=== PATIENT | male | born 1955 | race Caucasian/White ===

== ENCOUNTER → 2017-08-20 | Outpatient (CLI) | payer BC ==
--- NOTE | 2017-08-21 09:21 | MRI ---
EXAM DESCRIPTION: Knee,Right: MRI. CLINICAL HISTORY: KNEE PAIN COMPARISON: None. TECHNIQUE: Multiplanar, high-field MRI, multiple sequences, without contrast: Right knee. FINDINGS: Increased signal in the posterior horn more than the anterior horn of the medial meniscus. No fluid signal no definite extension to the articular surface. However, on the coronal sequence there appears to be a full-thickness tear between the posterior horn in the central root attachment. Any collateral ligament and elements of the lateral collateral ligament complex are unremarkable. A soft tissue mass or fluid collection. Mild to moderate chondromalacia in the medial compartment with effusion. Marginal spurs. Subchondral edema anterior outer medial plateau. Minimal outward subluxation of the anterior horn of the medial meniscus. Intermediate degenerative signal in the lateral meniscus. No definite tear. Minimal lateral chondromalacia and marginal spurs. Minimal chondromalacia lateral condyle and moderate chondromalacia lateral plateau with 1 focal ulcer extending to the subchondral bone. No subchondral edema. Anterior cruciate and posterior cruciate ligaments are intact. Minimal intra-cruciate space effusion. Spurs on the tibial spines and the intracondylar notch of the femur. No posterior soft tissue masses or fluid abutting the knee. Distal iliotibial band is unremarkable. Medial collateral ligament and elements of the lateral collateral ligament complex are intact. Multiple lesions of grade 4 osteochondrosis on the medial patellar facet. Mild chondromalacia on the lateral patellar facet. Marginal spurs on the medial and lateral trochlea facets. Grade 4 osteochondrosis in the trochlear groove and the lateral trochlear facet. Suprapatellar effusion. Normal signal in the quadriceps and patellar tendons. Superior and inferior patellar spurs. Focal degenerative signal in the patellar tendon near the patellar attachment. IMPRESSION: 1. Full-thickness vertical tear of the posterior horn posterior central root abutting the insertion on the tibia. Moderate degeneration of the posterior horn. Minimal degeneration of the anterior horn. Grade 4 osteochondrosis anterior outer medial plateau. Moderate chondromalacia in the medial compartment with effusion. 2. Degeneration of the lateral meniscus and chondromalacia of the lateral compartment with full-thickness ulcer in the tibial plateau. No subchondral edema. 3. Intra-cruciate space effusion but cruciate and collateral ligaments are intact. 4. Grade 4 osteochondrosis of the medial patellar facet and the lateral femoral trochlea facet and trochlear groove cartilage. Suprapatellar effusion. Large medial and lateral trochlear spurs. Superior and inferior patellar spurs. Electronically signed by: Richie Reyes MD 08/21/2017 9:20 AM CDT
== END ==
LOC: MRI 10:11
PROVIDERS: ATTEND Family Medicine
DX: S83.241A Other tear of medial meniscus, current injury, right knee, initial encounter (principal); R60.0 Localized edema; M93.861 Other specified osteochondropathies, right lower leg

== ENCOUNTER 2017-09-22 16:14 | Emergency (ER) | payer BC ==
[2017-09-22 16:47] VITALS: TEMP 99.1
[2017-09-22 18:33] VITALS: BP 128/80; O2SAT 91
--- NOTE | 2017-09-22 18:46 | ED.PDOC ---
History of Present Illness - General Chief Complaint: Abdominal Pain Stated Complaint: abdominal pain Time Seen by Provider: 09/22/17 18:36 Information Source: patient Exam Limitations: no limitations - History of Present Illness Initial Comments: Mitchel Marie 62 y/o male stated that he accidentally slammed his chest and belly on a wooden door last Sunday stateed room was dark at home denies any head or neck injuries.Stated with sharp chest pains left side and abdominal pain since incident. Abdominal Pain Onset Location: LUQ, other - left sided chest wall pain Pain Radiation: no radiation Quality: moderate, intermittent, sharpness Associated Symptoms: other - see hpi Review of Systems - Review of Systems Constitutional: States: no symptoms reported EENTM: States: no symptoms reported Respiratory: States: see HPI Cardiology: States: no symptoms reported Gastrointestinal/Abdominal: States: see HPI Musculoskeletal: States: no symptoms reported Skin: States: no symptoms reported Neurological: States: no symptoms reported All other Systems: Reviewed and Negative, No Change from Baseline Past Medical History (General) - Patient Medical History Hx Stroke: No Hx Congestive Heart Failure: No Hx Diabetes: No Surgical History: other - left shoulder - Vaccination History Hx Influenza Vaccination: Yes Hx Pneumococcal Vaccination: Yes - Social History Hx Tobacco Use: Yes Hx Chewing Tobacco Use: Yes Hx Alcohol Use: No Hx Substance Use: No Hx Substance Use Treatment: No Hx Physical Abuse: No Hx Emotional Abuse: No Hx Suspected Abuse: No Family Medical History - Family History Father Family History: Unknown Living Status: Unknown Hx Family Cancer: Yes - Dad-prostate;Mom-Lung Physical Exam - Physical Exam General Appearance: Alert, Anxious, No apparent distress Eyes, Ears, Nose, Throat Exam: normal ENT inspection Neck: non-tender, full range of motion, supple Respiratory: normal breath sounds, no respiratory distress, no accessory muscle use, other - tenderness left lower rib cage Cardiovascular/Chest: normal peripheral pulses, regular rate, rhythm, no murmur Peripheral Pulses: No deficit Gastrointestinal/Abdominal: tenderness - luq no peritoneal signs Back Exam: no CVA tenderness, no vertebral tenderness Extremity: no pedal edema, no calf tenderness Neurologic: alert, normal mood/affect, oriented x 3 Skin Exam: normal color, warm/dry, other - ecchymosis luq and left upper arm Progress - Progress Progress: 09/22/17 18:53 Vital Signs - 8 hr 09/22/17 09/22/17 16:42 18:15 Temperature 99.1 F Pulse Rate [ 113 H 90 Left Brachial] Respiratory 20 20 Rate Blood Pressure 125/91 128/80 [Left Arm] O2 Sat by Pulse 94 L 91 L Oximetry Departure - Departure Clinical Impression: Contusion of abdominal wall, initial encounter, Left nephrolithiasis, Solitary nodule of right lobe of thyroid Contusion of left chest wall Qualifiers: Encounter type: initial encounter Qualified Code(s): S20.212A - Contusion of left front wall of thorax, initial encounter Time of Disposition: 19:52 Disposition: Discharge to Home or Self Care Condition: Fair Departure Forms: ED Discharge - Pt. Copy, Patient Portal Self Enrollment Instructions: DI for Contusion, DI for Rib Contusion, Contusion Referrals: Marc Haywood MD [Primary Care Provider] - 1-2 Weeks Home Medications: Ambulatory Orders Acetaminophen W/ Codeine [Tylenol W/ CODEINE #3] 1 ea PO PRN 09/22/17 Cyclobenzaprine HCl [Cyclobenzaprine HCl] 10 mg PO TID PRN 09/22/17 Gabapentin [Gabapentin] 600 mg PO BID 09/22/17 Warfarin Sodium 5 mg PO MOTUWETHFR 09/22/17 Warfarin Sodium 7.5 mg PO .SASU 09/22/17 Additional Instructions: Continue with all home medication;Follow up with primary Md 24 September 2017
--- NOTE | 2017-09-22 19:40 | CT ---
EXAM DESCRIPTION: Abdomen/Pelvis w/o Contrast (accession [id number]), Chest w/o Contrast (accession [id number]) CLINICAL HISTORY: 62 years Male pain COMPARISON: None. TECHNIQUE: Contiguous axial images obtained through the chest: abdomen and pelvis without IV contrast. Reformatted images obtained. This exam was performed according to our department optimization program which includes automated exposure control, adjustment of the mA and/or kv according to patient size and/or use of iterative reconstruction technique. FINDINGS: Chest: The aorta is unenhanced but appears normal in caliber. There is trace fluid in the superior pericardial recess. No pleural effusion is present. No significant thoracic adenopathy. Incompletely imaged right thyroid nodule measuring 2.7 cm. Recommend ultrasound. No evidence of pneumothorax. No evidence of pulmonary contusion or consolidation. Abdomen pelvis: Unremarkable liver. The spleen and pancreas appear unremarkable. No adrenal masses. No evidence of hydronephrosis. Nonobstructing renal calculus on the left. Parapelvic cysts bilaterally. The gallbladder is elongated. No aneurysmal dilatation of the aorta. No bowel obstruction. Moderate fecal material in the colon. Nonvisualization of the appendix. Enlarged prostate. No free pelvic fluid. IMPRESSION: No acute process in the chest abdomen or pelvis 2.7 cm right thyroid lesion. Recommend follow-up with ultrasound Mildly elongated gallbladder Nonobstructing left renal calculus Enlarged prostate. Electronically signed by: Thais King MD 09/22/2017 7:39 PM CDT
--- NOTE | 2017-09-22 19:40 | CT ---
EXAM DESCRIPTION: Abdomen/Pelvis w/o Contrast (accession [id number]), Chest w/o Contrast (accession [id number]) CLINICAL HISTORY: 62 years Male pain COMPARISON: None. TECHNIQUE: Contiguous axial images obtained through the chest: abdomen and pelvis without IV contrast. Reformatted images obtained. This exam was performed according to our department optimization program which includes automated exposure control, adjustment of the mA and/or kv according to patient size and/or use of iterative reconstruction technique. FINDINGS: Chest: The aorta is unenhanced but appears normal in caliber. There is trace fluid in the superior pericardial recess. No pleural effusion is present. No significant thoracic adenopathy. Incompletely imaged right thyroid nodule measuring 2.7 cm. Recommend ultrasound. No evidence of pneumothorax. No evidence of pulmonary contusion or consolidation. Abdomen pelvis: Unremarkable liver. The spleen and pancreas appear unremarkable. No adrenal masses. No evidence of hydronephrosis. Nonobstructing renal calculus on the left. Parapelvic cysts bilaterally. The gallbladder is elongated. No aneurysmal dilatation of the aorta. No bowel obstruction. Moderate fecal material in the colon. Nonvisualization of the appendix. Enlarged prostate. No free pelvic fluid. IMPRESSION: No acute process in the chest abdomen or pelvis 2.7 cm right thyroid lesion. Recommend follow-up with ultrasound Mildly elongated gallbladder Nonobstructing left renal calculus Enlarged prostate. Electronically signed by: Thais King MD 09/22/2017 7:39 PM CDT
[2017-09-22] MEDS ORDERED: HYDROCOD/APAP 10/325 (ER DISP) # 3 tablets PO ONE (19:54)
== END 2017-09-22 20:20 | disposition home or self-care (01) ==
LOC: ER 16:14
DX: S30.1XXA Contusion of abdominal wall, initial encounter (principal); S20.212A Contusion of left front wall of thorax, initial encounter; E04.1 Nontoxic single thyroid nodule; Z87.891 Personal history of nicotine dependence; W22.09XA Striking against other stationary object, initial encounter; Y92.009 Unspecified place in unspecified non-institutional (private) residence as the place of occurrence of the external cause

== ENCOUNTER 2019-04-28 05:30 | Day surgery (SDC) | payer BC ==
[2019-04-28] MEDS ORDERED: MOXIFLOXACIN HCL (OPHTH) 1 DROP DROPS ONE (05:51)
[2019-04-28] MEDS ORDERED: TROP 1%/CYCLOPEN 1%/PHENYL 2% DROPS ONE (05:51)
[2019-04-28] MEDS ORDERED: PROPARACAINE 0.5% OPHTH SOL 15 ML BTTL ONE (05:51)
[2019-04-28] MEDS ORDERED: MIDAZOLAM INJ 2 MG/2 ML VIAL ONE ×3 (09:29→09:39)
[2019-04-28] MEDS ORDERED: LIDOCAINE 1% 2 ML VIAL INJ ONE (09:38)
[2019-04-28] MEDS ORDERED: MOXIFLOXACIN HCL (OPHTH) 1 DROP DROPS LEFT_EYE ONE (09:49)
[2019-04-28] MEDS ORDERED: DEXAMETHASONE 0.1% OPHTH SOL 1 DROP LEFT_EYE ONE (09:50)
[2019-04-28] MEDS ORDERED: BRIMONIDINE 0.2% OPHTH DROPS LEFT_EYE ONE (09:50)
[2019-04-28] MEDS ORDERED: TOBRAMYCIN SULF 0.3 % OPHT SOL 1 DROP LEFT_EYE ONE (09:50)
== END 2019-04-28 10:27 | disposition home or self-care (01) ==
LOC: AMB 05:30
PROVIDERS: ATTEND Ophthalmology
DX: H25.12 Age-related nuclear cataract, left eye (principal); Z79.01 Long term (current) use of anticoagulants; Z79.899 Other long term (current) drug therapy
CPT/HCPCS: 00142; 66984; J2250